=== PATIENT | female | born 1965 | race Caucasian/White ===

== ENCOUNTER 2020-05-19 09:52 | Outpatient (RCR) | payer OTHER | END 2020-05-24 | LOC: PT | DX: M25.551 Pain in right hip (principal) ==

== ENCOUNTER 2020-05-26 08:32 | Outpatient (RCR) | payer OTHER | END 2020-06-02 09:00 | disposition home or self-care (01) | LOC: PT 08:32 | DX: M25.551 Pain in right hip (principal) ==